=== PATIENT | male | born 1985 | race Hispanic/Latino ===

== ENCOUNTER 2020-11-01 17:32 | Emergency (ER) | payer SELFPAY ==
[2020-11-01] MEDS ORDERED: Tetracaine 0.5% PF 4 ML BOT ONE (17:43)
[2020-11-01] MEDS ORDERED: Boostrix 0.5 ML (Tdap) VIAL ONE (17:43)
[2020-11-01] MEDS ORDERED: Fluorescein Opthalmic Strip ONE (17:44)
[2020-11-01] MEDS ORDERED: Tobramycin Sulfate 0.3% Ophth Susp 5 ml Bottle ONE (18:11)
== END 2020-11-01 18:26 | disposition home or self-care (01) ==
LOC: BURERS 17:32
DX: T15.02XA Foreign body in cornea, left eye, initial encounter (principal); W45.8XXA Other foreign body or object entering through skin, initial encounter
CPT/HCPCS: 65220; 90471; 90715

== ENCOUNTER 2021-03-12 17:43 | Emergency (ER) | payer SELFPAY ==
[2021-03-12] MEDS ORDERED: Neomycin-Polymyxin-Hc 7.5 ML BOT ONE (17:50)
[2021-03-12] MEDS ORDERED: Fluorescein Opthalmic Strip ONE (17:50)
[2021-03-12] MEDS ORDERED: Tetracaine 0.5% PF 4 ML BOT ONE (17:50)
== END 2021-03-12 18:08 | disposition home or self-care (01) ==
LOC: BURERS 17:43
DX: S05.01XA Injury of conjunctiva and corneal abrasion without foreign body, right eye, initial encounter (principal); W45.8XXA Other foreign body or object entering through skin, initial encounter
CPT/HCPCS: 99283